=== PATIENT | male | born 1995 | race Caucasian/White ===

== ENCOUNTER 2017-05-06 11:43 | Emergency (ER) | payer MEDICAID, OTHER ==
[2017-05-06] MEDS ORDERED: ONDANSETRON 4 MG TAB.RAPDIS PO ONE (11:55)
--- NOTE | 2017-05-06 11:56 | ER Document Report ---
ED Medical Screen (RME) - General Chief Complaint: Nausea/Vomiting/Diarrhea Stated Complaint: NAUSEA VOMITING DIARRHEA Time Seen by Provider: 05/06/17 11:55 Notes: Patient says that he awakened this morning around 8 AM with vomiting and diarrhea. Has vomited about 4 or 5 times and had 3 episodes of diarrhea. No blood present. Having some generalized cramping. Patient's spouse is here and she was treated for same symptoms about 3 days ago. Patient has never had any abdominal surgeries. Denies any fever. On no medicines for any medical condition. TRAVEL OUTSIDE OF THE [place] IN LAST 30 DAYS: No - Related Data Allergies/Adverse Reactions: No Known Allergies Allergy (Verified 05/06/17 11:45) Physical Exam - Vital signs Vitals: Temp Pulse Resp BP Pulse Ox 98.6 F 88 14 131/70 H 100 05/06/17 11:50 05/06/17 11:50 05/06/17 11:50 05/06/17 11:50 05/06/17 11:50 Course - Vital Signs Vital signs: Temp Pulse Resp BP Pulse Ox 98.6 F 88 14 131/70 H 100 05/06/17 11:50 05/06/17 11:50 05/06/17 11:50 05/06/17 11:50 05/06/17 11:50
--- NOTE | 2017-05-06 13:32 | ER Document Report ---
ED GI/ - General Chief Complaint: Nausea/Vomiting/Diarrhea Stated Complaint: NAUSEA VOMITING DIARRHEA Time Seen by Provider: 05/06/17 11:55 Mode of Arrival: Ambulatory Information source: Patient Notes: Patient is a 22-year-old male who presents to the ER today for nausea, vomiting and diarrhea that he woke up with this morning. Patient admits to body aches and chills but does not know if he had a fever or not. He states that his girlfriend was sick with the exact same symptoms a few days ago. He admits to at least 3 episodes of vomiting and 4 episodes of diarrhea today. He denies any upper respiratory symptoms such as runny nose or cough. TRAVEL OUTSIDE OF THE [place] IN LAST 30 DAYS: No - Related Data Allergies/Adverse Reactions: No Known Allergies Allergy (Verified 05/06/17 11:45) Past Medical History - General Information source: Patient - Social History Smoking Status: Former Smoker Frequency of alcohol use: None Drug Abuse: None Family History: Reviewed & Not Pertinent Patient has suicidal ideation: No Patient has homicidal ideation: No Renal/ Medical History: Denies: Hx Peritoneal Dialysis Review of Systems - Review of Systems Constitutional: See HPI EENT: No symptoms reported Cardiovascular: No symptoms reported Respiratory: No symptoms reported Gastrointestinal: See HPI Genitourinary: No symptoms reported Male Genitourinary: No symptoms reported Musculoskeletal: No symptoms reported Skin: No symptoms reported Hematologic/Lymphatic: No symptoms reported Neurological/Psychological: No symptoms reported Physical Exam - Vital signs Vitals: Temp Pulse Resp BP Pulse Ox 98.6 F 88 14 131/70 H 100 05/06/17 11:50 05/06/17 11:50 05/06/17 11:50 05/06/17 11:50 05/06/17 11:50 - Notes Notes: PHYSICAL EXAMINATION: GENERAL: Mildly ill-appearing, but in no acute distress. HEAD: Atraumatic, normocephalic. EYES: Pupils equal round and reactive to light, extraocular movements intact, sclera anicteric, conjunctiva are normal. ENT: ear canals without erythema or foreign body, TMs pearly cohen with good bony landmarks, nares patent, oropharynx clear without exudates. Moist mucous membranes. NECK: Normal range of motion, supple without lymphadenopathy LUNGS: CTAB and equal. No wheezes rales or rhonchi. HEART: Regular rate and rhythm without murmurs ABDOMEN: Soft, no tenderness. No guarding, no rebound BACK: no vertebral tenderness, normal ROM GI/: no CVA tenderness EXTREMITIES: Normal range of motion, no pitting edema. No cyanosis. NEUROLOGICAL: Cranial nerves grossly intact. Normal sensory/motor exams. PSYCH: Normal mood, normal affect. SKIN: Warm, Dry, normal turgor, no rashes or lesions noted Course - Re-evaluation Re-evalutation: 05/06/17 15:24 Patient feels better after Zofran and was able to drink an entire glass of water and eat crackers without any nausea or vomiting. Patient discharged with Zofran. Patient advised to drink plenty of fluids. - Vital Signs Vital signs: Temp Pulse Resp BP Pulse Ox 98.5 F 86 16 134/70 H 97 05/06/17 13:41 05/06/17 13:41 05/06/17 13:41 05/06/17 13:41 05/06/17 13:41 Discharge - Discharge Clinical Impression: Viral syndrome Nausea & vomiting Qualifiers: Vomiting type: unspecified Vomiting Intractability: non-intractable Qualified Code(s): R11.2 - Nausea with vomiting, unspecified Diarrhea Qualifiers: Diarrhea type: presumed infectious Qualified Code(s): A09 - Infectious gastroenteritis and colitis, unspecified Condition: Stable Disposition: HOME, SELF-CARE Instructions: Diarrhea, Nonspecific ([facility]), Viral Syndrome ([facility]), Vomiting ([facility]) Additional Instructions: Drink plenty of fluids. Return immediately for any new or worsening symptoms. Follow up with primary care provider, call tomorrow to make followup appointment. Prescriptions: Ondansetron [Zofran Odt 4 mg Tablet] 1 - 2 tab PO Q4H PRN #30 tab.rapdis PRN Reason: For Nausea/Vomiting
[2017-05-06 13:44] VITALS: BP 134/70
== END 2017-05-06 13:40 | disposition home or self-care (01) ==
LOC: ER 11:43
DX: A09 Infectious gastroenteritis and colitis, unspecified (principal); B34.9 Viral infection, unspecified; R11.2 Nausea with vomiting, unspecified; M79.1 Myalgia; Z87.891 Personal history of nicotine dependence
CPT/HCPCS: 99283; S0119